=== PATIENT | male | born 1950 | race Caucasian/White ===

== ENCOUNTER 2019-07-29 15:58 | Emergency (ER) | payer OTHER ==
[~2019-07-29] VITALS: Ht 188 cm; Wt 105.2 kg
[2019-07-29 16:00] VITALS: BP_SYST 155
--- NOTE | 2019-07-29 16:00 | NUR ---
BROUGHT BACK TO BED #1 AND TRIAGED. REPORT GIVEN TO DENISE
--- NOTE | 2019-07-29 16:11 | NUR ---
ER Dr. Carrillo at bedside examining patient.
[2019-07-29] MEDS ORDERED: MORPHINE 4 MG/ML INJ. SYRINGE IVP ONE (16:30)
[2019-07-29] MEDS ORDERED: DIPHENHYDRAMINE INJ 50 MG/ML VIAL IVP ONE (16:30)
--- NOTE | 2019-07-29 16:30 | NUR ---
Patient bib spouse with cc of right lower back pain radiating right lower abdomen thinking of kidney stone. denies nausea,vomiting. vital sign stable,afebrile. no other concerned noted.
[2019-07-29 16:32] LABS: BILIRUBIN,URINE NEGATIVE (NEGATIVE); BLOOD, URINE 3+ (NEGATIVE); GLUCOSE,URINE NEGATIVE (NEGATIVE); KETONES,URINE TRACE (NEGATIVE); LEUKOCYTE ESTERASE ,URINE NEGATIVE (NEGATIVE); NITRITE, URINE NEGATIVE (NEGATIVE); PH,URINE 7.5 (5.0-8.0); PROTEIN URINE 1+ (NEGATIVE)
--- NOTE | 2019-07-29 16:38 | NUR ---
Medicated per MD orders. VSS, on tele monitor. Bed in lowest positon, side rails up. at bedside.
[2019-07-29 16:39] LABS: CLARITY/URINE HAZY (CLEAR); COLOR,URINE AMBER (YELLOW)
[2019-07-29 16:40] LABS: RBC,URINE >100 /HPF (0-3)
[2019-07-29 16:41] LABS: BACTERIA,URINE FEW /HPF (None Seen); MUCUS,URINE None Seen /LPF (None Seen); WBC,URINE 0-3 /HPF (0-3)
--- NOTE | 2019-07-29 16:41 | NUR ---
PCxR at bedside
[2019-07-29 16:56] LABS: BASOPHILS % (AUTO) 0.2 % (0.0-2.0); HEMOGLOBIN 16.2 g/dL (14.0-18.0); LYMPHOCYTES # (AUTO) 1.8 K/uL (1.0-5.5); MONOCYTES # (AUTO) 0.6 K/uL (0.0-1.0); PLATELET COUNT (AUTO) 192 K/uL (130-430)
[2019-07-29 16:58] LABS: CALCIUM 9.6 mg/dL (8.4-11.0); CREATININE 1.1 mg/dL (0.55-1.30)
--- NOTE | 2019-07-29 16:58 | NUR ---
PATIENT BACK FROM RADIOLOGY DEPARTMENT.
[2019-07-29 17:00] LABS: PROTHROMBIN TIME 10.5 SECS (9.5-12.5)
[2019-07-29 17:01] LABS: EOSINOPHILS % (AUTO) 0.4 % (0.0-4.0); HEMATOCRIT 46.8 % (36-54); LYMPHOCYTES % (AUTO) 15.2 % (20.5-51.5); MEAN CORPUSCULAR HEMOGLOBIN 31 pg (27-31); MEAN CORPUSCULAR HGB CONC 35 % (32-36); MEAN CORPUSCULAR VOLUME 91 fL (79.0-98.0); MONOCYTES % (AUTO) 5.1 % (1.7-9.3); NEUTROPHILS # (AUTO) 9.5 K/uL (1.8-7.7); NEUTROPHILS % (AUTO) 79.1 % (40.0-70.0); RED BLOOD CELL COUNT(AUTO) 5.16 MIL/uL (4.2-6.2); RED CELL DISTRIBUTION WIDTH 12.7 % (9.0-15.0)
[2019-07-29 17:04] LABS: ALBUMIN 4.5 g/dL (3.4-4.8); TOTAL BILIRUBIN 0.7 mg/dL (0.0-1.0)
[2019-07-29 18:00] VITALS: BP_SYST 154
--- NOTE | 2019-07-29 18:00 | NUR ---
Patient given written and verbal discharge instructions and verbalizes understanding. ER MD discussed with patient the results and treatment provided. Patient in stable condition. ID arm band removed. IV catheter removed intact and dressing. no active bleeding. Rx of motrin given. Patient educated on pain management and to follow up with PMD. Pain Scale 0. Opportunity for questions provided and answered. Medication side effect fact sheet provided.
== END 2019-07-29 18:00 | disposition home or self-care (01) ==
LOC: SED 15:58
DX: N20.0 Calculus of kidney (principal); I10 Essential (primary) hypertension; E78.5 Hyperlipidemia, unspecified; Z88.0 Allergy status to penicillin; Z95.1 Presence of aortocoronary bypass graft
CPT/HCPCS: 36415; 71045; 74176; 80053; 81000; 83605; 83690; 85025; 85610; 87040; 93005; 96374; 96375; 99284; J1200; J2270

== ENCOUNTER 2019-07-31 08:31 | Inpatient (IN) | payer OTHER ==
[~2019-07-31] VITALS: Ht 189.2 cm; Wt 111.6 kg
[2019-07-31 08:36] VITALS: BP_SYST 156
--- NOTE | 2019-07-31 09:00 | NUR ---
Patient presented to ER with abdominal pain. Patient A&Ox4, ambulatory to ER, skin pink and warm, pain 10/10, nausea, vomiting, denies diarrhea. Patient states she was seen in [facility] ER Thursday, dx: kidney stones, now pain unmangeable. HX of Cardiac SX, triple [id number], stent placement 2018, TAVR 2018
[2019-07-31] MEDS ORDERED: ONDANSETRON HCL 4 MG/2 ML VIAL IVP ONE (09:15)
[2019-07-31] MEDS ORDERED: MORPHINE 4 MG/ML INJ. SYRINGE IVP ONE (09:15)
[2019-07-31] MEDS ORDERED: NACL 0.9% 1,000 ML IV ONE ×2 (09:15→13:30)
--- NOTE | 2019-07-31 09:15 | NUR ---
ER Dr. Loredo at bedside examining patient.
[2019-07-31 10:04] LABS: BASOPHILS % (AUTO) 0.2 % (0.0-2.0); EOSINOPHILS # (AUTO) 0.1 K/uL (0.0-0.4); EOSINOPHILS % (AUTO) 0.4 % (0.0-4.0); HEMATOCRIT 44.4 % (36-54); HEMOGLOBIN 15.1 g/dL (14.0-18.0); LYMPHOCYTES # (AUTO) 1.6 K/uL (1.0-5.5); MEAN CORPUSCULAR HEMOGLOBIN 31 pg (27-31); MEAN CORPUSCULAR HGB CONC 34 % (32-36); MEAN CORPUSCULAR VOLUME 92 fL (79.0-98.0); MONOCYTES # (AUTO) 1.2 K/uL (0.0-1.0); MONOCYTES % (AUTO) 9.9 % (1.7-9.3); NEUTROPHILS # (AUTO) 9.6 K/uL (1.8-7.7); NEUTROPHILS % (AUTO) 76.5 % (40.0-70.0); PLATELET COUNT (AUTO) 152 K/uL (130-430); RED BLOOD CELL COUNT(AUTO) 4.83 MIL/uL (4.2-6.2); WHITE BLOOD COUNT (AUTO) 12.6 K/uL (4.8-10.8)
[2019-07-31 10:08] LABS: CALCIUM 9.4 mg/dL (8.4-11.0); CREATININE 1.39 mg/dL (0.55-1.30); POTASSIUM 4.9 mmol/L (3.5-5.1)
[2019-07-31 10:13] LABS: ALBUMIN 3.9 g/dL (3.4-4.8); TOTAL BILIRUBIN 0.7 mg/dL (0.0-1.0)
--- NOTE | 2019-07-31 10:15 | NUR ---
Patient C/O pain 05/17, asked Ultrasound staff to hold during study, made Dr. Loredo.
[2019-07-31] MEDS ORDERED: KETOROLAC TROMETHAMINE 30 MG VIAL IVP ONE (10:30)
--- NOTE | 2019-07-31 10:45 | NUR ---
Ultrasound staff at bedside to complete ultrasound study
[2019-07-31 11:15] LABS: BILIRUBIN,URINE NEGATIVE (NEGATIVE); CLARITY/URINE CLEAR (CLEAR); COLOR,URINE YELLOW (YELLOW); GLUCOSE,URINE NEGATIVE (NEGATIVE); KETONES,URINE NEGATIVE (NEGATIVE); LEUKOCYTE ESTERASE ,URINE NEGATIVE (NEGATIVE); NITRITE, URINE NEGATIVE (NEGATIVE); PH,URINE 5.5 (5.0-8.0); PROTEIN URINE NEGATIVE (NEGATIVE); UROBILINOGEN,URINE 0.2 (0.2-1.0)
[2019-07-31 11:17] LABS: BLOOD, URINE TRACE (NEGATIVE)
[2019-07-31 11:23] LABS: BACTERIA,URINE RARE /HPF (None Seen); MUCUS,URINE 1+ /LPF (None Seen); RBC,URINE 0-3 /HPF (0-3); WBC,URINE 0-3 /HPF (0-3)
--- NOTE | 2019-07-31 11:25 | NUR ---
Patient resting efra, at bedside.
--- NOTE | 2019-07-31 12:05 | NUR ---
ER Dr. Loredo at bedside examining patient.
[2019-07-31] MEDS ORDERED: ASPI-1155 PO (13:29)
[2019-07-31] MEDS ORDERED: LIP20 PO (13:29)
[2019-07-31] MEDS ORDERED: CLOP75TA32 PO (13:29)
[2019-07-31] MEDS ORDERED: METO25TA3 PO (13:29)
[2019-07-31] MEDS ORDERED: LISI10TA5 PO (13:29)
--- NOTE | 2019-07-31 13:52 | NUR ---
Patient will be admitted to care of Dr. Castellanos. Admitted to Medsurg unit. Will go to room 109B . Belongings list completed. Complete and up to date summary report printed. Report to be given at bedside with opportunity for questions.
--- NOTE | 2019-07-31 14:01 | NUR ---
ADMISSION NOTE Received patient from ER via efra, received report from STACI CARDOZA. Patient admitted with diagnosis of KIDNEY STONE. Patient oriented to hospital routine, call light, toileting and safety-patient verbalized understanding.
[2019-07-31 14:17] VITALS: BP_SYST 120
[2019-07-31] MEDS ORDERED: TAMSULOSIN HCL 0.4 MG CAP PO ONE (14:30)
[2019-07-31] MEDS ORDERED: DOCUSATE SODIUM 100 MG CAPSULE PO PRN (15:00)
[2019-07-31] MEDS ORDERED: MUPIROCIN 2% TOPICAL OINTMENT 22 GM NS PRN (15:00)
[2019-07-31] MEDS ORDERED: MAGNESIUM SULFATE 50 ML IV PRN (15:00)
[2019-07-31] MEDS ORDERED: ZOLPIDEM TARTRATE 5 MG TABLET PO PRN (15:00)
[2019-07-31] MEDS ORDERED: ACETAMINOPHEN 325 MG TABLET PO PRN (15:00)
[2019-07-31] MEDS ORDERED: ONDANSETRON HCL 4 MG/2 ML VIAL IVP PRN (15:00)
[2019-07-31] MEDS ORDERED: MORPHINE 2 MG/ML INJ. SYRINGE IVP PRN ×2 (15:00)
[2019-07-31] MEDS ORDERED: POTASSIUM CHLORIDE 20 MEQ TAB.PRT.SR PO PRN (15:00)
[2019-07-31 16:00] VITALS: BP_SYST 119
--- NOTE | 2019-07-31 16:03 | NUR ---
Uro consult called: for Dr. 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 Castellanos, spoke with Alice.
[2019-07-31] MEDS: KETOROLAC TROMETHAMINE 30 MG VIAL IVP PRN ×2 (16:35→21:27)
[2019-07-31] MEDS: NACL 0.9% 1,000 ML IV SCH (16:36)
[2019-07-31] MEDS: LEVOFLOXACIN 500 MG/D5W 100 ML IV SCH (16:36)
--- NOTE | 2019-07-31 16:48 | NUR ---
PAIN MEDICATIONS PT COMPLAINING OF FLANK PAIN, 03/16. EDUCATED PT ON USES AND SIDE EFFECTS OF TORADOL. PT VERBALIZED UNDERSTANDING. TORADOL ADMINISTERED.
--- NOTE | 2019-07-31 18:43 | NUR ---
CLOSING NOTE PT AWAKE, PAIN CONTROLLED AT THIS TIME. AT BEDSIDE. IVF INFUSING WELL. CALL LIGHT WITHIN REACH, BED IN LOW AND LOCKED POSITION WITH BED ALARM ON. WILL CONTINUE TO MONITOR UNTIL PT CARE IS ENDORSED TO UI DESIGNER RN.
[2019-07-31 20:00] VITALS: BP_SYST 108
--- NOTE | 2019-07-31 20:45 | NUR ---
Patient received in bed. AOx4. patient is in visible pain. PRN pain meds do at 2130. No respiratory distress noted. Family at bedside. No respiratory distress noted. Will continue to monitor.
[2019-07-31] MEDS ORDERED: HEPARIN SODIUM,PORCINE 5000 UNITS/ML VIAL SUBCUT SCH (21:00)
[2019-07-31] MEDS: TAMSULOSIN HCL 0.4 MG CAP PO SCH (21:28)
[2019-08-01] MEDS: NACL 0.9% 1,000 ML IV SCH ×3 (00:41→22:48)
[2019-08-01 00:42] VITALS: BP_SYST 123
--- NOTE | 2019-08-01 02:00 | NUR ---
ativan 2mg IVP prn given.
[2019-08-01] MEDS: LORazepam 2 MG/ML VIAL IVP PRN ×2 (02:34→22:46)
--- NOTE | 2019-08-01 02:55 | NUR ---
Patient sleeping. Eyes closed/chest rising. no distress noted. Will continue to monitor.
--- NOTE | 2019-08-01 03:00 | NUR ---
Torodol 30mg IVP prn given
[2019-08-01] MEDS: KETOROLAC TROMETHAMINE 30 MG VIAL IVP PRN ×3 (03:05→21:45)
[2019-08-01 07:20] LABS: BASOPHILS % (AUTO) 0.3 % (0.0-2.0); EOSINOPHILS % (AUTO) 0.5 % (0.0-4.0); HEMATOCRIT 37.9 % (36-54); HEMOGLOBIN 13.2 g/dL (14.0-18.0); LYMPHOCYTES # (AUTO) 1.5 K/uL (1.0-5.5); LYMPHOCYTES % (AUTO) 16.6 % (20.5-51.5); MEAN CORPUSCULAR HEMOGLOBIN 32 pg (27-31); MEAN CORPUSCULAR HGB CONC 35 % (32-36); MEAN CORPUSCULAR VOLUME 91 fL (79.0-98.0); NEUTROPHILS # (AUTO) 6.7 K/uL (1.8-7.7); NEUTROPHILS % (AUTO) 71.6 % (40.0-70.0); PLATELET COUNT (AUTO) 127 K/uL (130-430); RED BLOOD CELL COUNT(AUTO) 4.16 MIL/uL (4.2-6.2); RED CELL DISTRIBUTION WIDTH 12.8 % (9.0-15.0); WHITE BLOOD COUNT (AUTO) 9.3 K/uL (4.8-10.8)
[2019-08-01 07:40] LABS: CREATININE 1.55 mg/dL (0.55-1.30); POTASSIUM 4.8 mmol/L (3.5-5.1)
--- NOTE | 2019-08-01 08:00 | NUR ---
initial notes rec patient awake alert with ivf infusing well on the l ac. no infiltration noted. resp easy and unlabored. bed to the lowest position and side rails up and locked. denies pain at this time. call light within reached.
[2019-08-01] MEDS ORDERED: CLOPIDOGREL BISULFATE 75 MG TABLET PO SCH ×2 (09:00→21:00)
[2019-08-01] MEDS ORDERED: METOPROLOL SUCCINATE 25 MG TAB.SR.24H (TOPROL XL) PO SCH ×2 (09:00→21:00)
[2019-08-01] MEDS: ATORVASTATIN 20 MG TABLET PO SCH (10:00)
[2019-08-01] MEDS: TAMSULOSIN HCL 0.4 MG CAP PO SCH ×2 (10:00→21:50)
--- NOTE | 2019-08-01 10:00 | NUR ---
rounds seen by dr ramos and ordered to do a bladdere scan. obtained 300 cc and was aware. pt refused to have the [place] in and stated he is voiding fine.
--- NOTE | 2019-08-01 10:00 | NUR ---
rounds ambulating on the hallway with the and tl well. denies pain.
[2019-08-01] MEDS: ASPIRIN 81 MG TAB.CHEW PO SCH (10:01)
--- NOTE | 2019-08-01 10:03 | NUR ---
CONSULTATION PAGED/CALLED Reason for Consultation: RENAL INSUFF Person Who was Notified: SKYLAR Consulting Physician: / [employer] Lens Technician Specialty: Ordering Physician:
[2019-08-01 12:00] VITALS: BP_SYST 144
[2019-08-01] MEDS ORDERED: COMMUNICATION ORDER XX ONE (12:45)
--- NOTE | 2019-08-01 14:00 | NUR ---
rounds sleeps at intervals and no osb noted. call light within reached.
--- NOTE | 2019-08-01 14:17 | NUR ---
FOLLOW UP CONSULT FOR
[2019-08-01] MEDS: LEVOFLOXACIN 500 MG/D5W 100 ML IV SCH (14:19)
[2019-08-01 16:00] VITALS: BP_SYST 129; BP_SYST 146
--- NOTE | 2019-08-01 16:00 | NUR ---
rounds no sob noted. call light within reached. ambulates at intervals on the hallway.
--- NOTE | 2019-08-01 18:30 | NUR ---
closing notes pt with the at bedside . resting comfortably. denies pain at this time. no sob noted. call light within reached/ side rails up and locked.
[2019-08-01 20:00] VITALS: BP_SYST 133
[2019-08-01 21:17] VITALS: BP_SYST 146
[2019-08-02] VITALS: BP_SYST 132
--- NOTE | 2019-08-02 07:01 | NUR ---
CLOSING NOTES Patient resting in bed, patient tolerated CPAP well. Family at bedside. IVF running, dressings c/d/i. Call light within reach, bed alarm refused after patient educated and verbalized understanding of risks and benefits. All needs met throughout shift. Will endorse care to oncoming shift.
[2019-08-02 07:26] LABS: BASOPHILS % (AUTO) 0.4 % (0.0-2.0); EOSINOPHILS # (AUTO) 0.1 K/uL (0.0-0.4); EOSINOPHILS % (AUTO) 0.9 % (0.0-4.0); HEMATOCRIT 39.9 % (36-54); HEMOGLOBIN 13.9 g/dL (14.0-18.0); LYMPHOCYTES # (AUTO) 2.1 K/uL (1.0-5.5); MEAN CORPUSCULAR HEMOGLOBIN 32 pg (27-31); MEAN CORPUSCULAR HGB CONC 35 % (32-36); MEAN CORPUSCULAR VOLUME 92 fL (79.0-98.0); MONOCYTES # (AUTO) 1.2 K/uL (0.0-1.0); MONOCYTES % (AUTO) 12.2 % (1.7-9.3); NEUTROPHILS # (AUTO) 6.6 K/uL (1.8-7.7); NEUTROPHILS % (AUTO) 65.5 % (40.0-70.0); PLATELET COUNT (AUTO) 134 K/uL (130-430); RED BLOOD CELL COUNT(AUTO) 4.35 MIL/uL (4.2-6.2); RED CELL DISTRIBUTION WIDTH 12.9 % (9.0-15.0); WHITE BLOOD COUNT (AUTO) 10.1 K/uL (4.8-10.8)
--- NOTE | 2019-08-02 08:00 | NUR ---
initial notes rec patient awake alert and eating breakfast. ivf infusing well on the l ac. no infiltration noted. at bedside. bed to the lowest positionand side rails up and locked. bed to the lowest position and side rails up and locked. call light within reached.
[2019-08-02 08:57] LABS: CALCIUM 8.4 mg/dL (8.4-11.0); CREATININE 1.52 mg/dL (0.55-1.30); POTASSIUM 4.4 mmol/L (3.5-5.1)
[2019-08-02] MEDS: ATORVASTATIN 20 MG TABLET PO SCH (09:28)
[2019-08-02] MEDS: ASPIRIN 81 MG TAB.CHEW PO SCH (09:28)
[2019-08-02] MEDS: TAMSULOSIN HCL 0.4 MG CAP PO SCH (09:28)
--- NOTE | 2019-08-02 10:00 | NUR ---
rounds seen by dr ramos and still waiting for dr vashti ochoa to see patient. call light within reached.
--- NOTE | 2019-08-02 11:07 | NUR ---
Recalled Uro consult: for Dr. Prescott, regarding right hydronephrosis, ordered by Dr. Castellanos, spoke with
--- NOTE | 2019-08-02 12:00 | NUR ---
rounds ambulates at intervals to the br. call light within reached.
[2019-08-02] MEDS: KETOROLAC TROMETHAMINE 30 MG VIAL IVP PRN (12:49)
[2019-08-02 13:06] VITALS: BP_SYST 142
[2019-08-02] MEDS: LEVOFLOXACIN 500 MG/D5W 100 ML IV SCH (13:27)
--- NOTE | 2019-08-02 14:00 | NUR ---
rounds due abx was given and wants to leave wants radhaavquin is over. infusing well and nathalia good. no sob noted. call light withn reached.
[2019-08-02 14:22] VITALS: BP_SYST 142
--- NOTE | 2019-08-02 15:20 | NUR ---
CLOSING NOTES pt was discharged after seen by dr vashti ochoa. exit care was given. instructed re appt with pmd, and dr vashti ochoa or to that urologist suggested by dr banks. no sob noted. escorted patient outside refused the wheelchair. ivl and id band was removed.accompanied by . stable and needs attended.
== END 2019-08-02 15:20 | disposition home or self-care (01) | DRG 694 ==
LOC: SED 08:31 → SMU 13:30
PROVIDERS: ADMIT General Practice; ATTEND General Practice
DX: N13.2 Hydronephrosis with renal and ureteral calculous obstruction (principal); N17.0 Acute kidney failure with tubular necrosis; E66.9 Obesity, unspecified; K57.90 Diverticulosis of intestine, part unspecified, without perforation or abscess without bleeding; E78.5 Hyperlipidemia, unspecified; F12.90 Cannabis use, unspecified, uncomplicated; I10 Essential (primary) hypertension; I25.10 Atherosclerotic heart disease of native coronary artery without angina pectoris; Z95.1 Presence of aortocoronary bypass graft; Z95.2 Presence of prosthetic heart valve; Z95.5 Presence of coronary angioplasty implant and graft; Z68.31 Body mass index [BMI] 31.0-31.9, adult; Z88.0 Allergy status to penicillin; Z79.899 Other long term (current) drug therapy; Z79.82 Long term (current) use of aspirin
CPT/HCPCS: 36415; 76770; 80048; 80053; 81000-TC; 83036; 83735-TC; 85025; 94660; 96361; 96374; 96375; 99285; J1885; J1956; J2060; J2270; J2405; J3475; J7030